=== PATIENT | male | born 1950 | race Caucasian/White ===

== ENCOUNTER 2017-05-13 14:00 | Inpatient (IN) | payer OTHER ==
[2017-05-13 17:51] VITALS: BMI 22.5
--- NOTE | 2017-05-13 20:53 | HP ---
COWS - Scale Resting Pulse: 0= VT 80 or Below Sweatin=Flushed/Facial Moisture Restless Observation: 1= Difficult to Sit Still Pupil Size: 0= Normal to Room Light Bone or Joint Aches: 4=Acute Joint/Muscle Pain Runny Nose/ Eye Tearin= Runny Nose/Eyes GI Upset > 30mins: 2= Nausea/Diarrhea Tremor Observation: 4= Gross Tremor/Twitching Yawning Observation: 0= None Anxiety or Irritability: 2=Irritable/Anxious Goose Flesh Skin: 3=Piloerection COWS Score: [address] [facility] Chief Complaint: Heroin withdrawal symptoms Allergies/Adverse Reactions: Allergies Allergy/AdvReac Type Severity Reaction Status Date / Time banana Allergy Severe Vomiting Verified 05/13/17 18:42 History of Present Illness: 66 yars old male with a long history of opioid dependence is admitted to detox. Patient denies previous detox and reports insignificant period of sobriety. He has past medical history of COPD, Osteoporosis and depression. Denies suicidal ideation at this time Exam Limitations: Physical Impairment - Ebola screening Have you traveled outside of the country in the last 21 days: No (N) Have you had contact with anyone from an Ebola affected area: No Have you been sick,other than usual withdrawal symptoms: No Do you have a fever: No - Review of Systems Constitutional: Loss of Appetite, Malaise, Night Sweats, Changes in sleep EENT: reports: Blurred Vision, Nose Congestion, Sinus Pressure Respiratory: reports: SOB with Exertion (H/o COPD) Cardiac: reports: No Symptoms Reported GI: reports: Nausea, Poor Appetite, Poor Fluid Intake : reports: No Symptoms Reported Musculoskeletal: reports: Back Pain, Joint Pain, Muscle Pain, Muscle Weakness Integumentary: reports: Dryness, Flushing Neuro: reports: Headache, Tingling, Tremors Endocrine: reports: No Symptoms Reported Hematology: reports: No Symptoms Reported Psychiatric: reports: Orientated x3, Agitated, Anxious, Depressed Other Systems: Reviewed and Negative Patient History - Patient Medical History Hx Asthma: No Hx Chronic Obstructive Pulmonary Disease (COPD): Yes Hx Cancer: No Hx Cardiac Disorders: No Hx Congestive Heart Failure: No Hx Hypertension: No Hx Hypercholesterolemia: No HX Cerebrovascular Accident: No Hx Seizures: No Hx Dementia: No Hx Diabetes: No Hx Gastrointestinal Disorders: No Hx Liver Disease: Yes (HEPATITIS A, HEPATITIS C) Hx Genitourinary Disorders: No Hx Sexually Transmitted Disorders: No Hx Renal Disease (ESRD): Yes (NEPHRITIS) Hx Thyroid Disease: No Hx Human Immunodeficiency Virus (HIV): No Hx Hepatitis C: Yes Hx Depression: Yes Hx Suicide Attempt: No (DENIES SUICIDAL IDEATION) Hx Bipolar Disorder: No Hx Schizophrenia: No - Patient Surgical History Past Surgical History: No Hx Neurologic Surgery: No Hx Cataract Extraction: No Hx Cardiac Surgery: No Hx Lung Surgery: No Hx Abdominal Surgery: No Hx Appendectomy: No Hx Cholecystectomy: No Hx Genitourinary Surgery: No Hx Orthopedic Surgery: No Anesthesia Reaction: No - PPD History 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 History Hx Alcohol Use: No Hx Substance Use: Yes Substance Use Type: Heroin Hx Substance Use Treatment: No - Substances Abused Heroin Route: Inhalation Frequency: Daily Amount used: 4 bags Age of first use: 13 Date of Last Use: 05/12/17 Family Disease History - Family Disease History Family Disease History: Respiratory: Mother (COPD- ) Admission Physical Exam BHS - Vital Signs Vital Signs: Vital Signs - 24 hr 05/13/17 17:49 Temperature 98.3 F Pulse Rate 78 Respiratory 18 Rate Blood Pressure 135/76 - Physical General Appearance: Yes: Thin, Tremorous, Irritable, Sweating, Anxious HEENTM: Yes: EOMI, DANIEL Respiratory: Yes: Lungs Clear, No Respiratory Distress, Crackles Neck: Yes: Supple Breast: Yes: Breast Exam Deferred Cardiology: Yes: Within Normal Limits Abdominal: Yes: Normal Bowel Sounds, Soft Genitourinary: Yes: Within Normal Limits Back: Yes: Within Normal Limits Musculoskeletal: Yes: Back pain, Joint swelling, Muscle Pain, Muscle weakness Extremities: Yes: Tremors Neurological: Yes: Alert, Normal Mood/Affect, Normal Response Integumentary: Yes: Dry Lymphatic: Yes: Within Normal Limits - Diagnostic (1) Opioid dependence with withdrawal Current Visit: Yes Status: Chronic (2) COPD (chronic obstructive pulmonary disease) Current Visit: Yes Status: Chronic (3) Osteoporosis Current Visit: Yes Status: Chronic (4) Nicotine dependence Current Visit: Yes Status: Chronic (5) Depression Current Visit: Yes Status: Chronic BHS Breath Alcohol Content Breath Alcohol Content: 0 Urine Drug Screen - Results Drug Screen Negative: No Urine Drug Screen Results: OPI-Opiates, OXY-Oxycodone
[2017-05-13] MEDS ORDERED: LOPERAMIDE HCL 2 MG CAPSULE PO PRN (21:05)
[2017-05-13] MEDS ORDERED: MENTHOL/PHENOL 1 EACH UD MM PRN (21:05)
[2017-05-13] MEDS ORDERED: ACETAMINOPHEN 325 MG TABLET (FP) PO PRN (21:05)
[2017-05-13] MEDS ORDERED: P-EPHED 60MG/TRIPROLIDI 2.5MG TABLET PO PRN (21:05)
[2017-05-13] MEDS ORDERED: MAGNESIUM CITRATE 300 ML BOTTLE PO PRN (21:05)
[2017-05-13] MEDS ORDERED: NICOTINE POLACRILEX 2 MG GUM BC PRN (21:05)
[2017-05-13] MEDS ORDERED: guaiFENesin/D-METHORPHAN HB 10 ML UNIT-DOSE CUPS PO PRN (21:05)
[2017-05-13] MEDS ORDERED: MAG HYDROX/AL HYDROX/SIMETH 30 ML UNIT-DOSE CUP PO PRN (21:05)
[2017-05-13] MEDS ORDERED: METHADONE HCL 10 MG TABLET (FOR DETOX USE ONLY) PO ONE ×2 (21:05→23:00)
[2017-05-13] MEDS ORDERED: MAGNESIUM HYDROX 2400MG/30ML ORAL SUSPENSION 30 ML CUP PO PRN (21:05)
[2017-05-13] MEDS: diazePAM 5 MG TABLET PO PRN (22:43)
[2017-05-13] MEDS: MONTELUKAST NA 10 MG TABLET PO SCH (22:43)
[2017-05-13] MEDS: THIAMINE HCL 100 MG TABLET (FP) PO SCH (22:44)
[2017-05-13] MEDS: ALBUTEROL SO4 18 GM HFA INHALER IH SCH (22:44)
[2017-05-13 23:01] LABS: URINE APPEARANCE CLEAR; URINE BILIRUBIN NEGATIVE (NEGATIVE); URINE BLOOD NEGATIVE (NEGATIVE); URINE COLOR YELLOW; URINE GLUCOSE (UA) NEGATIVE (NEGATIVE); URINE KETONE NEGATIVE (NEGATIVE); URINE LEUK ESTERASE NEGATIVE (NEGATIVE); URINE NITRITE NEGATIVE (NEGATIVE); URINE PROTEIN NEGATIVE (NEGATIVE); URINE UROBILINOGEN NEGATIVE mg/dL (0.2-1.0)
[2017-05-14] MEDS: ALBUTEROL SO4 18 GM HFA INHALER IH SCH ×6 (01:30→22:10)
[2017-05-14] MEDS: ALBUTEROL SO4 0.083% IH SOL 2.5 MG/3 ML VIAL.NEB. NEB PRN ×2 (08:07→17:51)
[2017-05-14] MEDS ORDERED: METHADONE HCL 10 MG TABLET (FOR DETOX USE ONLY) PO ONE (10:00)
[2017-05-14 10:09] LABS: HEMATOCRIT 44.5 % (35.4-49); HEMOGLOBIN 14.3 GM/dL (11.7-16.9); MCH 29.2 pg (25.7-33.7); MCHC 32.1 g/dl (32.0-35.9); MEAN CELL VOLUME 90.8 fl (80-96); MEAN PLT VOLUME 10.8 fl (7.5-11.1); PLATELET COUNT 157 K/MM3 (134-434); RDW 13.8 % (11.9-15.9); WHITE BLOOD COUNT 5.9 K/mm3 (4.0-10.0)
[2017-05-14] MEDS: PRENATAL VITAMINS W/ FOLIC ACID TABLET (FP) PO SCH (10:18)
[2017-05-14] MEDS: TIOTROPIUM BROMIDE 18 MCG/INH (DEVICE W/ 5 CAPSULES) IH SCH (10:18)
[2017-05-14] MEDS: NICOTINE 14 MG/24 HOURS TOPICAL PATCH TD SCH (10:18)
[2017-05-14] MEDS: diazePAM 5 MG TABLET PO PRN ×3 (10:18→22:02)
[2017-05-14] MEDS: IBUPROFEN 400 MG TABLET (FP) PO PRN ×2 (10:20→22:04)
--- NOTE | 2017-05-14 11:01 | PN ---
BHS COWS - Scale Resting Pulse: 1= SD 81-100 Sweatin=Flushed/Facial Moisture Restless Observation: 1= Difficult to Sit Still Pupil Size: 2= Moderately Dilated Bone or Joint Aches: 2= Severe Diffuse Aches Runny Nose/ Eye Tearin= Runny Nose/Eyes GI Upset > 30mins: 2= Nausea/Diarrhea Tremor Observation of Outstretched Hands: 2= Slight Tremor Visible Yawning Observation: 0= None Anxiety or Irritability: 2=Irritable/Anxious Goose Flesh Skin: 0=Smooth Skin COWS Score: 16 BHS Progress Note (SOAP) Objective: 05/14/17 11:05 Laboratory Tests 05/13/17 05/14/17 22:40 07:00 WBC 5.9 RBC 4.90 Hgb 14.3 Hct 44.5 MCV 90.8 MCH 29.2 MCHC 32.1 RDW 13.8 Plt Count 157 MPV 10.8 Urine Color Yellow Urine Appearance Clear Urine pH 6.0 Ur Specific [place] 1.011 Urine Protein Negative Urine Glucose (UA) Negative Urine Ketones Negative Urine Blood Negative Urine Nitrite Negative Urine Bilirubin Negative Urine Urobilinogen Negative Ur Leukocyte Esterase Negative Vital Signs - 24 hr 05/13/17 05/13/17 05/14/17 17:49 22:51 00:49 Temperature 98.3 F 98.8 F Pulse Rate 78 90 Respiratory 18 18 18 Rate Blood Pressure 135/76 127/73 05/14/17 05/14/17 05/14/17 03:30 06:00 09:26 Temperature 98.8 F 97.5 F L Pulse Rate 86 93 H Respiratory 18 16 18 Rate Blood Pressure 123/63 132/76 LABS PENDING Assessment: 05/14/17 11:05 WITHDRAWAL Plan: CONT DETOX PROTOCOL
[2017-05-14 11:37] LABS: CHLORIDE 100 mmol/L (98-107); POTASSIUM 4.4 mmol/L (3.5-5.1); SODIUM 141 mmol/L (136-145)
[2017-05-14 12:01] LABS: ALBUMIN 3.7 g/dl (3.4-5.0); ALK PHOS 99 U/L (45-117); ANION GAP 9 (8-16); BILIRUBIN,TOTAL 0.8 mg/dL (0.2-1.0); BLOOD UREA NITROGEN 18 mg/dL (7-18); CALCIUM 9.3 mg/dL (8.5-10.1); CO2 32 mmol/L (21-32); GLUCOSE,RANDOM 104 mg/dL (74-106); SGOT/AST 27 U/L (15-37); SGPT/ALT 37 U/L (12-78); TOT PROT 7.7 g/dl (6.4-8.2)
--- NOTE | 2017-05-14 19:10 | PN ---
S Progress Note Note: received nurse called that the patient has advair with him is property encourage the nurse to fatch the advair and sent to the pharmacy for verification and return to the unit
[2017-05-14] MEDS ORDERED: BUDESONIDE/FORMETEROL FUMARATE 80/4.5 mcg INHALER IH SCH (22:00)
[2017-05-14] MEDS: THIAMINE HCL 100 MG TABLET (FP) PO SCH (22:02)
[2017-05-14] MEDS: MONTELUKAST NA 10 MG TABLET PO SCH (22:03)
[2017-05-15] MEDS: ALBUTEROL SO4 18 GM HFA INHALER IH SCH ×6 (02:40→22:15)
[2017-05-15] MEDS: diazePAM 5 MG TABLET PO PRN ×4 (06:40→22:33)
--- NOTE | 2017-05-15 07:53 | EKG ---
Test Reason : Blood Pressure : / mmHG Vent. Rate : 084 BPM Atrial Rate : 084 BPM P-R Int : 160 ms QRS Dur : 100 ms QT Int : 368 ms P-R-T Axes : 061 -63 033 degrees QTc Int : 434 ms NORMAL SINUS RHYTHM LEFT AXIS DEVIATION ABNORMAL ECG NO PREVIOUS ECGS AVAILABLE Confirmed by AMY RUBALCAVA, LEONARD ([id number]) on 05/15/2017 7:53:24 AM Referred By: Confirmed By:LEONARD REYES MD
[2017-05-15] MEDS ORDERED: METHADONE HCL 5 MG TABLET (FOR DETOX USE ONLY) PO ONE (10:00)
[2017-05-15] MEDS: NICOTINE 14 MG/24 HOURS TOPICAL PATCH TD SCH (10:15)
[2017-05-15] MEDS: PRENATAL VITAMINS W/ FOLIC ACID TABLET (FP) PO SCH (10:15)
[2017-05-15] MEDS: TIOTROPIUM BROMIDE 18 MCG/INH (DEVICE W/ 5 CAPSULES) IH SCH (10:17)
--- NOTE | 2017-05-15 13:53 | PN ---
BHS COWS - Scale Resting Pulse: 1= SD 81-100 Sweatin= Chills/Flushing Restless Observation: 1= Difficult to Sit Still Pupil Size: 1= Pupils >than Normal Bone or Joint Aches: 1= Mild Discomfort Runny Nose/ Eye Tearin= Nasal Congestion GI Upset > 30mins: 1= Stomach Cramp Tremor Observation of Outstretched Hands: 1= Tremor [place], Not Seen Yawning Observation: 0= None Anxiety or Irritability: 2=Irritable/Anxious Goose Flesh Skin: 0=Smooth Skin COWS Score: 10 BHS Progress Note (SOAP) Subjective: c/o cough sweats Objective: 05/15/17 13:51 Vital Signs Temperature 98.5 F 05/15/17 13:09 Pulse Rate 85 05/15/17 13:09 Respiratory Rate 16 05/15/17 13:09 Blood Pressure 113/63 05/15/17 13:09 O2 Sat by Pulse Oximetry (%) cxr- copd no focal infiltrate cbc wbc wnl pt aox3 in nad ambulating Assessment: 05/15/17 13:52 withdrawal sx' copd Plan: cont. detox increase fluids cont neb tx.
[2017-05-15] MEDS: ALBUTEROL SO4 0.083% IH SOL 2.5 MG/3 ML VIAL.NEB. NEB PRN (17:34)
[2017-05-15] MEDS: THIAMINE HCL 100 MG TABLET (FP) PO SCH (22:33)
[2017-05-15] MEDS: MONTELUKAST NA 10 MG TABLET PO SCH (22:33)
[2017-05-16] MEDS: ALBUTEROL SO4 18 GM HFA INHALER IH SCH ×2 (01:45→06:42)
[2017-05-16 06:19] VITALS: BP 94/58; PULSE 91; TEMP 97.1
[2017-05-16] MEDS ORDERED: METHADONE HCL 5 MG TABLET (FOR DETOX USE ONLY) PO ONE (10:00)
[2017-05-17] MEDS ORDERED: METHADONE HCL 10 MG TABLET (FOR DETOX USE ONLY) PO ONE (10:00)
[2017-05-18] MEDS ORDERED: METHADONE HCL 5 MG TABLET (FOR DETOX USE ONLY) PO ONE (06:00)
== END 2017-05-16 07:45 | disposition left against medical advice (07) | DRG 894 ==
LOC: YASAS 14:00 → Y6N 19:03
PROVIDERS: ADMIT Internal Medicine; ATTEND Internal Medicine
PROC: HZ2ZZZZ Detoxification Services for Substance Abuse Treatment (ICD-10-PCS; principal; 2017-05-13)
DX: F11.23 Opioid dependence with withdrawal (principal); J44.1 Chronic obstructive pulmonary disease with (acute) exacerbation; F17.210 Nicotine dependence, cigarettes, uncomplicated; F32.9 Major depressive disorder, single episode, unspecified; M81.0 Age-related osteoporosis without current pathological fracture; Z91.018 Allergy to other foods
CPT/HCPCS: 36415; 71046-TC; 80053; 81003; 85027; 86593; 86803; 87522; 93005; 93010; 94640